=== PATIENT | female | born 1995 | race Two or more races ===

== ENCOUNTER 2024-10-12 22:28 | Emergency (ER) | payer MEDICAID, OTHER ==
[~2024-10-12] VITALS: Ht 165.1 cm; Wt 119.5 kg
[2024-10-12 22:35] VITALS: BP 130/65; PULSE 78; RESP 18; O2SAT 98
--- NOTE | 2024-10-12 22:58 | ED.PDOC ---
DISPENSARY CLERK HPI Comments 29-year-old female came to ER due to vaginal bleeding. Patient is a , approximately 7 weeks . States earlier today she started having vaginal spotting. Denies any abdominal pain or cramping. Chief Complaint: Vaginal Bleed Time Seen by MD: 22:58 Reviewed Notes: Nurses Notes Allergies: Coded Allergies: NO KNOWN ALLERGIES (Unverified , 10/12/24) Information Source: Patient Mode of Arrival: Ambulatory Timing: Hours Severity: Mild Vaginal Discharge: None Vaginal Lesions: None Bleeding Quality: Bright Red Vaginal Mass: None Onset Of Mass/Bleeding: Spontaneous Sexual Activity: Associated Signs and Symptoms: Vaginal Bleeding Past Medical History PAST MEDICAL HISTORY: Denies Surgical History: Denies all surgeries RECORDING CLERK History: Denies all RECORDING CLERK Hx 7 Para 6 Family History Family History: Reviewed,noncontributory to illness Social History Smoker: Non-Smoker Alcohol: Denies ETOH Use Drugs: Denies Drug Use Lives In: Home Constitutional: denies: chills, diaphoresis, fatigue, fever, malaise, sweats, weakness, others EENTM: denies: blurred vision, double vision, ear bleeding, ear discharge, ear drainage, ear pain, ear ringing, eye pain, eye redness, hearing loss, mouth pain, mouth swelling, nasal discharge, nose bleeding, nose congestion, nose pain, photophobia, tearing, throat pain, throat swelling, voice changes, others Respiratory: denies: cough, hemoptysis, orthopnea, SOB at rest, shortness of breath, SOB with excertion, stridor, wheezing, others Cardiovascular: denies: chest pain, dizzy spells, diaphoresis, Dyspnea on exertion, edema, irregular heart beat, left arm pain, lightheadedness, palpitations, PND, syncope, others Gastrointestinal: denies: abdomen distended, abdominal pain, blood streaked bowels, constipated, diarrhea, dysphagia, difficulty swallowing, hematemesis, melena, nausea, poor appetite, poor fluid intake, rectal bleeding, rectal pain, vomiting, others Genitourinary: reports: abnormal vagina bleeding; denies: burning, dyspareunia, dysuria, flank pain, frequency, hematuria, incontinence, pain, , vagina discharge, urgency, others Neurological: denies: dizziness, fainting, headache, left sided numbness, left sided weakness, numbness, paresthesia, pre-existing deficit, right sided numbness, right sided weakness, seizure, speech problems, tingling, tremors, weakness, others Musculoskeletal: denies: back pain, gout, joint pain, joint swelling, muscle pain, muscle stiffness, neck pain, others Integumetry: denies: bruises, change in color, change in hair/nails, dryness, laceration, lesions, lumps, rash, wounds, others Allergic/Immunocompromised: denies: Difficulty Healing, Frequent Infections, Hives, Itching, others Hematologic/Lymphatic: denies: anemia, blood clots, easy bleeding, easy bruising, swollen glands, others Endocrine: denies: excessive hunger, excessive sweating, excessive thirst, excessive urination, flushing, intolerance to cold, intolerance to heat, unexplained weight gain, unexplained weight loss, others Psychiatric: denies: anxiety, bipolar disorder, depression, hopeless, panic disorder, schizophrenia, sleepless, suicidal, others Physical Exam General Appearance: Mild Distress (Patient was very pleasant and only in mild distress at time of evaluation.), Normal HEENT: Normal ENT Inspection, Pharynx Normal, TMs Normal Neck: Full Range of Motion, Non-Tender, Normal, Normal Inspection Respiratory: Chest Non-Tender, Lungs Clear, No Accessory Muscle Use, No Respiratory Distress, Normal Breath Sounds Cardiovascular: No Edema, No JVD, No Murmur, No Gallop, Normal Peripheral Pulses, Regular Rate/Rhythm Breast Exam: Deferred Gastrointestinal: No Organomegaly, Non Tender, No Pulsatile Mass, Normal Bowel Sounds, Soft Genitalia: Deferred Pelvic: Deferred Rectal: Deferred Extremities: No calf tenderness, Normal capillary refill, Normal inspection, Normal range of motion, Non-tender, No pedal edema Musculoskeletal : Apperance: Normal Neurologic: Alert, No Motor Deficits, Normal Affect, Normal Mood, No Sensory Deficits Cerebellar Function: Normal Reflexes: Normal Skin: Dry, Normal Color, Warm Lymphatic: No Adenopathy Was a procedure done? Was a procedure done?: No Differential Diagnosis (RECORDING CLERK) Vaginal Bleeding: - Missed, - Threatened, Blood Loss Anemia, Menorrhagia, Menstrual Bleeding, UTI, Other (Vaginal bleeding during 1st 14 weeks of ) Vaginal Discharge: X-Ray, Labs, Meds, VS Vital Signs Date Time Temp Pulse Resp B/P (MAP) Pulse Ox O2 Delivery O2 Flow Rate FiO2 10/12/24 22:35 98.2 78 18 130/65 (86) 98 Lab Test 10/12/24 23:07 10/12/24 22:33 Range/Units Beta HCG, Quantitative 54318.9 H 1.5-4.2 mIU/mL Urine Color Yellow Yellow Urine Clarity Turbid H Clear Urine pH 6.0 5.0-9.0 Urine Specific [place] 1.027 1.001-1.035 Urine Protein Negative Negative Urine Ketones Negative Negative Urine Blood 1+ H Negative /uL Urine Nitrite Negative Negative Urine Bilirubin Negative Negative Urine Urobilinogen Normal Negative mg/dL Urine Leukocyte Esterase Trace Negative /uL Urine RBC 14 0 - 4 /hpf Urine Microscopic WBC 1 0-5 /HPF Urine Squamous Epithelial Cells Few <5 /hpf Urine Bacteria Few H None Seen /hpf Urine Mucus Few None Seen Urine Glucose Normal Normal mg/dL OB EVALUATION, LESS THAN 14 WEEKS CLINICAL HISTORY: Spotting COMPARISON: None TECHNIQUE: Grayscale, color-flow Doppler, and spectral Doppler ultrasound of the pelvis is performed by transabdominal technique. FINDINGS: Uterus measures 10.3 x 6.4 x 6.1 cm. Intrauterine gestational sac and pole are noted. Yolk sac is also visualized. Mean gestational sac diameter 1.5 cm. [place]-rump length 0.5 cm. Average ultrasound age 6 weeks 0 days. Estimated due date 06/08/2025. heart rate 108 beats per minute. No discrete, sizable perigestational hematoma noted at this time. Right ovary measures 2.9 x 2.7 x 2.1 cm and contains an approximately 2.1 cm cyst with peripheral vascularity. This may represent a corpus luteum. Left ovary measures 2.0 x 1.8 x 1.2 cm. Both ovaries demonstrate dopplerable blood flow on spectral analysis. No significant free fluid identified within the cul-de-sac. IMPRESSION: Single living intrauterine gestation as above. Recommend continued follow-up as clinically indicated. HS:Y X-Ray, Labs, Meds, VS Comment All studies performed the ED were evaluated by me personally. [place] [id number] today. Ultrasound revealed a viable intravaginal dated at six weeks. Advised patient follow up with insurance associate for continued evaluation and management of her early . Time of 1ST Reevaluation: 01:20 Reevaluation 1ST: Unchanged Consultation: PCP, neurology director Patient Education/Counseling: Diagnosis, Treatment Family Education/Counseling: Diagnosis, Treatment, No Family Present Departure 1 Departure Time of Disposition: 01:20 Impression: Primary Impression: Vaginal bleeding before 22 weeks gestation Disposition: HOME / SELF CARE / HOMELESS Condition: Stable Additional Instructions: Advised patient that she has a viable dated at six weeks. Patient's beta-hCG today was [address]. Advised follow up with the insurance associate for continued management of her early . Discharged With: Self, Friend Critical Care Note Critical Care Time?: No Stability Stability form required: No Heart Score Heart Score: Heart Score Response (Comments) Value History N/A 0 EKG N/A 0 Age N/A 0 Risk Factors N/A 0 Troponin N/A 0 Total 0 I personally scribed for SRINI POTTS PAC ([email or web address]) on 10/12/24 at 22:58. Electronically submitted by Austen Peters ([email or web address]). I personally scribed for SRINI POTTS PAC ([email or web address]) on 10/13/24 at 01:17. Electronically submitted by Austen Peters ([email or web address]). SRINI POTTS PAC Oct 12, 2024 22:58
[2024-10-12 23:02] LABS: Urine Bacteria FEW /hpf (None Seen); Urine Blood 1+ /uL (Negative); Urine Clarity Turbid (Clear); Urine Color Yellow (Yellow); Urine Mucus FEW (None Seen); Urine Protein, UAD Negative (Negative); Urine Specific Gravity 1.027 (1.001-1.035); Urine Squamous Epithelial Cell FEW /hpf (<5); Urine Urobilinogen Normal (Negative); Urine WBC 1 /HPF (0-5)
--- NOTE | 2024-10-13 01:14 | DVH ---
OB EVALUATION, LESS THAN 14 WEEKS CLINICAL HISTORY: Spotting COMPARISON: None TECHNIQUE: Grayscale, color-flow Doppler, and spectral Doppler ultrasound of the pelvis is performed by transabdominal technique. FINDINGS: Uterus measures 10.3 x 6.4 x 6.1 cm. Intrauterine gestational sac and pole are noted. Yolk sac is also visualized. Mean gestational sac diameter 1.5 cm. [place]-rump length 0.5 cm. Average ultrasound age 6 weeks 0 days. Estimated due d ate 06/08/2025. heart rate 108 beats per minute. No discrete, sizable perigestational hematoma noted at this time. Right ovary measures 2.9 x 2.7 x 2.1 cm and contains an approximately 2.1 cm cyst with peripheral vas cularity. This may represent a corpus luteum. Left ovary measures 2.0 x 1.8 x 1.2 cm. Both ovaries d emonstrate dopplerable blood flow on spectral analysis. No significant free fluid identified within the cul-de-sac. IMPRESSION: Single living intrauterine gestation as above. Recommend continued follow-up as clinically indicated. HS:Y
== END 2024-10-13 05:18 | disposition home or self-care (01) ==
LOC: ER 22:28
DX: O20.9 Hemorrhage in early pregnancy, unspecified (principal); Z3A.01 Less than 8 weeks gestation of pregnancy
CPT/HCPCS: 36415; 76801; 81001; 84702